=== PATIENT | female | born 1955 | race Caucasian/White ===

== ENCOUNTER 2017-01-06 20:58 | Emergency (ER) | payer OTHER ==
[~2017-01-06] VITALS: Ht 167.6 cm; Wt 73.5 kg
[~2017-01-06 20:58] MED LIST: ACET-514 PO; CIPR500T4 PO; IBUP-1542 PO
[2017-01-06 21:02] VITALS: Ht 167.6 cm; Wt 73.5 kg
[2017-01-06 22:46] LABS: URINE BLOOD (Dip) POC Trace-lysed (NEGATIVE)
[2017-01-06] MEDS ORDERED: NITR-58 PO (23:00)
[2017-01-06] MEDS ORDERED: PHEN-538 PO (23:00)
--- NOTE | 2017-01-06 23:00 | ERD ---
ER Documentation Chief Complaint Date/Time DATE: 01/06/17 TIME: 22:57 Chief Complaint painful urination HPI 61-year-old female presents here in emergency department for complaints of dysuria that started today. Patient's complaining of a urinary urgency and frequency. Patient denies any vaginal itching or vaginal discharge. Patient denies any abdominal pain or flank pain. Patient states that she had a urinary tract infections before, felt the same way, use her urine shows negative but she has infection usually with it. Patient wants treatment for this. She does not have any fever or chills. Patient does not have any vaginal bleeding. ROS All systems reviewed and are negative except as per history of present illness. Medications Home Meds Active Scripts Acetaminophen (Acetaminophen) 325 Mg Tablet, 325 MG PO Q4, #30 TAB Prov:JENNIFER LINDSEY DO 11/10/15 Ibuprofen* (Ibuprofen*) 600 Mg Tablet, 600 MG PO Q8, #20 TAB Prov:JENNIFER LINDSEY DO 11/10/15 Ciprofloxacin Hcl* (Ciprofloxacin Hcl*) 500 Mg Tablet, 500 MG PO BID for 10 Days , TAB Prov:CAM HITCHCOCK PA-C 09/12/15 Allergies Allergies: Coded Allergies: No Known Allergy (Unverified , 05/11/15) PMhx/Soc History of Surgery: Yes (RT FOOT, BREAST AUGMENTATION) Anesthesia Reaction: No Hx Neurological Disorder: No Hx Respiratory Disorders: No Hx Cardiac Disorders: Yes (HTN) Hx Psychiatric Problems: No Hx Miscellaneous Medical Probl: No Hx Alcohol Use: No Hx Substance Use: No Hx Tobacco Use: No Smoking Status: Never smoker FmHx Family History: No coronary disease, No diabetes, No other Physical Exam Vitals Vital Signs Date Time Temp Pulse Resp B/P Pulse Ox O2 Delivery O2 Flow Rate FiO2 01/06/17 21:02 98.0 76 20 141/71 99 Physical Exam GENERAL: The patient is well developed and appropriate for usual state of health, in no apparent distress. CHEST: Clear to auscultation bilaterally. There are no rales, wheezes or rhonchi. HEART: Regular rate and rhythm. No murmurs, clicks, rubs or gallops. No S3 or S4. ABDOMEN: Soft, nontender and nondistended. Good bowel sounds. No rebound or guarding. No gross peritonitis. No gross organomegaly or masses. No Villegas sign or McBurney point tenderness. BACK: No midline or flank tenderness. EXTREMITIES: Equal pulses bilaterally. There is no peripheral clubbing, cyanosis or edema. No focal swelling or erythema. Full range of motion. Grossly neurovascularly intact. NEURO: Alert and oriented. Cranial nerves 2-12 intact. Motor strength in all 4 extremities with 5/5 strength. Sensation grossly intact. Normal speech and gait. SKIN: There is no apparent rash or petechia. The skin is warm and dry. HEMATOLOGIC AND LYMPHATIC: There is no evidence of excessive bruising or lymphedema. No gross cervical, axillary, or inguinal lymphadenopathy. Results 24 hrs Laboratory Tests Test 01/06/17 22:48 Bedside Urine pH (LAB) 5.0 Bedside Urine Protein (LAB) Negative Bedside Urine Glucose (UA) Negative Bedside Urine Ketones (LAB) Negative Bedside Urine Blood Trace-lysed Bedside Urine Nitrite (LAB) Negative Bedside Urine Leukocyte Esterase (L Negative Procedures/MDM Medical Decision Making: Patients symptoms are consistent with urinary tract infection, positive for trace of blood in the urine but no leukocytes, but can still be form of cystitis. There is low suspicion for pyelonephritis. There is low suspicion for abdominal emergencies at this time. Patients abdominal exam is normal. There is low suspicion for sepsis. Patient appears well and is hemodynamically stable. Disposition: Home. Stable Prescription for Macrobid Pyridium Instructions: Patient is advised to take medications as prescribed. Patient is advised to rest, increase fluid intake and do good perineal hygiene. Patient is advised that if symptoms are worse, severe abdominal pain, uncontrolled vomiting , high fever, severe flank pain, worst signs and symptoms, to return to the emergency department immediately. Otherwise, patient can follow up with primary care doctor in 5-7 days. Departure Diagnosis: Primary Impression: Cystitis Condition: Stable Patient Instructions: Cystitis Additional Instructions: Patient is advised to take medications as prescribed. Patient is advised to rest , increase fluid intake and do good perineal hygiene. Patient is advised that if symptoms are worse, severe abdominal pain, uncontrolled vomiting, high fever , severe flank pain, worst signs and symptoms, to return to the emergency department immediately. Otherwise, patient can follow up with primary care doctor in 5-7 days. STUART NICHOLS NP January 06, 2017 23:00
[2017-01-06 23:17] VITALS: BP 156/70; PULSE 63; RESP 19; TEMP 98.6
== END 2017-01-06 23:17 | disposition home or self-care (01) ==
LOC: FTE 20:58
DX: N30.90 Cystitis, unspecified without hematuria (principal); I10 Essential (primary) hypertension
CPT/HCPCS: 81003; Z7502; 99283